=== PATIENT | male | born 1955 | race Caucasian/White ===

== ENCOUNTER 2017-01-13 11:05 | Emergency (ER) | payer OTHER ==
--- NOTE | 2017-01-13 12:56 | ED ---
Eye Problem HPI - General Chief complaint: Eye Problems Stated complaint: RT EYE PROBLEM Time Seen by Provider: 01/13/17 12:01 Source: patient Mode of arrival: ambulatory Limitations: no limitations - History of Present Illness Initial comments: Patient is a 61-year-old man who presents to the ED for evaluation of 2 days of vision changes. The patient has a distant history of right cataract surgery done at the [facility] in [place]. Patient reports that he followed up postoperatively but has not followed up since that time. The patient reports that 2 days ago he began experiencing a blurry spot in the vision of his right eye. The patient describes this as feeling as though it there is a large drop of dirty water inside his visual field. Patient states when he moves his eye he feels as though this drop of blurry water moves around floats around his eye. Patient denies any pain in the eye, any redness, any tearing of the eye, he denies any recent trauma to the head or the eye. Patient denies any headaches, fevers chills nausea or vomiting. Patient reports he came to the ER today because he is concerned that something may be wrong with the lens that was placed in his eye when he had cataract surgery. Patient currently does not have a local driver's license or means of transportation therefore could not take himself to the ophthalmology office in [place] that he is followed with previously. chief complaint: vision change Onset/Timin (days) Onset Description: sudden Location: right eye Place: home Eye Symptoms: blurry vision Severity: mild Consistency: constant Associated Symptoms: none Treatments Prior to Arrival: none - Related Data Home Medications Medication Instructions Recorded Confirmed No Known Home Medications [No 01/13/17 01/13/17 Known Home Medications] Allergies Allergy/AdvReac Type Severity Reaction Status Date / Time No Known Allergies Allergy Verified 01/13/17 11:32 Review of Systems ROS Statement: Those systems with pertinent positive or pertinent negative responses have been documented in the HPI. ROS Other: All systems not noted in ROS Statement are negative. Constitutional: Denies: fever, chills Eyes: Reports: vision change. Denies: eye pain, eye discharge ENT: Denies: ear pain, throat pain Respiratory: Denies: cough Cardiovascular: Denies: chest pain Endocrine: Denies: fatigue Gastrointestinal: Denies: abdominal pain, nausea, vomiting Skin: Denies: rash, lesions Neurological: Denies: headache, weakness, numbness, paresthesias, confusion, abnormal gait, vertigo Psychiatric: Denies: anxiety, depression Hematological/Lymphatic: Denies: easy bleeding, easy bruising Past Medical History Past Medical History: No Reported History Additional Past Medical History / Comment(s): cataract right eye History of Any Multi-Drug Resistant Organisms: None Reported Past Surgical History: No Surgical Hx Reported Additional Past Surgical History / Comment(s): Cataract surgery right eye Past Psychological History: No Psychological Hx Reported Smoking Status: Current every day smoker Past Alcohol Use History: None Reported Past Drug Use History: None Reported General Exam Limitations: no limitations General appearance: alert, in no apparent distress Head exam: Present: atraumatic, normocephalic, normal inspection Eye exam: Present: normal appearance, PERRL, EOMI. Absent: scleral icterus, conjunctival injection, nystagmus, periorbital swelling, periorbital tenderness Pupils: Present: normal accommodation. Absent: irregular, unequal, miosis, mydriatic Expanded Eyelids: Normal Inspection: Bilateral Pupils: Regular, Round: Bilateral Sclera/Conjunctival: Normal Inspection: Bilateral Anterior chamber: Normal Inspection: Bilateral Posterior chamber: Retinal Detachment: Right (Concern for posterior vitreous detachment) Visual acuity (R) = 20/: 40 Visual acuity (L) = 20/: 40 With correction: No ENT exam: Present: normal exam Neck exam: Present: normal inspection Respiratory exam: Present: normal lung sounds bilaterally. Absent: respiratory distress, wheezes, rales, rhonchi, stridor Cardiovascular Exam: Present: regular rate, normal rhythm, normal heart sounds. Absent: systolic murmur, diastolic murmur, rubs, gallop, clicks GI/Abdominal exam: Present: soft, normal bowel sounds. Absent: distended, tenderness, guarding, rebound, rigid Rectal exam: Present: deferred Extremities exam: Present: normal inspection, full ROM, normal capillary refill. Absent: tenderness, pedal edema, joint swelling, calf tenderness Back exam: Present: normal inspection Neurological exam: Present: alert, oriented X3, CN II-XII intact, normal gait Course Vital Signs 01/13/17 11:24 Temperature 97.8 F Pulse Rate 88 Respiratory 17 Rate Blood Pressure 143/84 O2 Sat by Pulse 97 Oximetry - Reevaluation(s) Reevaluation #1: Ocular OR sound concerning for per posterior vitreous detachment 01/13/17 12:44 Reevaluation #2: Patient care discussed with Dr. Dunn, agrees with assessment of likely posterior vitreous detachment, less likely retinal detachment given the patient' s good visual acuity. He would like to see the patient office at 8 AM tomorrow. Discharge and follow-up information was provided in writing for the patient. 01/13/17 13:00 Medical Decision Making - Medical Decision Making Patient was seen and evaluated, history is obtained from the patient vital signs were reviewed History concerning for posterior vitreous detachment versus retinal detachment Physical exam with abnormal red reflex of the right eye Bedside ocular ultrasound again concerning for posterior vitreous detachment, optic nerve was seen on bedside ultrasound and appeared to be normal shape History and Physical exam were discussed with ophthalmology on-call who agree that this is likely a posterior vitreous detachment, they recommended the patient follow up in their office tomorrow morning at 8 AM. All findings and ophthalmology recommendations were discussed with the patient. All questions were pertaining to care were answered to the best of my ability. Patient was advised that he is safe for discharge home at this time however he should return to the ED for any acute changes in his vision or development of any eye pain. Patient expressed understanding and agreement with the plan. Disposition Clinical Impression: Vitreous detachment of right eye, Vision changes Disposition: HOME SELF-CARE Instructions: Visual Floaters (ED) Referrals: None,Stated [Primary Care Provider] - 1-2 days Hubert Dunn MD [STAFF PHYSICIAN] - 01/14/17 8:00 am
[2017-01-13 13:25] VITALS: BP 147/89; PULSE 76; RESP 18; TEMP 97.6
== END 2017-01-13 13:22 | disposition home or self-care (01) ==
LOC: EC 11:05
DX: H43.811 Vitreous degeneration, right eye (principal); F17.200 Nicotine dependence, unspecified, uncomplicated; Z98.41 Cataract extraction status, right eye
CPT/HCPCS: 99283

== ENCOUNTER 2019-08-30 14:19 | Emergency (ER) | payer OTHER ==
[2019-08-30 14:30] VITALS: BP 137/83; PULSE 87; RESP 18; TEMP 98
[2019-08-30] MEDS ORDERED: LIDOCAINE 1% INJ 10MG/ML (20 ML MDV) SQ ONE (14:35)
--- NOTE | 2019-08-30 14:54 | ED ---
General Adult HPI - General Chief complaint: Skin/Abscess/Foreign Body Stated complaint: abscess/lump on chest Time Seen by Provider: 08/30/19 14:35 Source: patient, RN notes reviewed Mode of arrival: ambulatory Limitations: no limitations - History of Present Illness Initial comments: 63-year-old male with a past medical history of GERD presents to the emergency department for abscess of the left chest. Patient states he had possibly an ingrown hair here a couple weeks ago and that has since gotten larger and more red. States it is painful. Patient denies any fevers. Denies chest pain. Denies immunocompromised state. Patient has no other complaints at this time including shortness of breath, chest pain, abdominal pain, nausea or vomiting, headache, or visual changes. - Related Data Previous Rx's Medication Instructions Recorded Omeprazole [PriLOSEC] 20 mg PO AC-BRKFST #30 cap 07/01/17 Sucralfate [Carafate] 1 gm PO BID #60 tablet 07/01/17 traMADol HCL [Ultram] 50 mg PO Q6HR PRN #20 tab 07/01/17 Cephalexin [Keflex] 500 mg PO Q6HR 10 Days #40 cap 08/30/19 Sulfamethox-Tmp 800-160Mg [Bactrim 1 tab PO Q12HR #20 tab 08/30/19 DS 800-160 mg] Allergies Allergy/AdvReac Type Severity Reaction Status Date / Time No Known Allergies Allergy Verified 08/30/19 14:31 Review of Systems ROS Statement: Those systems with pertinent positive or pertinent negative responses have been documented in the HPI. ROS Other: All systems not noted in ROS Statement are negative. Past Medical History Past Medical History: GERD/Reflux Additional Past Medical History / Comment(s): cataract right eye History of Any Multi-Drug Resistant Organisms: None Reported Past Surgical History: No Surgical Hx Reported Additional Past Surgical History / Comment(s): Cataract and retinal surgery right eye Past Anesthesia/Blood Transfusion Reactions: No Reported Reaction Past Psychological History: No Psychological Hx Reported Smoking Status: Current every day smoker Past Alcohol Use History: None Reported Past Drug Use History: None Reported - Past Family History Sister(s) Additional Family Medical History / Comment(s): gerd/reflux Mother Additional Family Medical History / Comment(s): emphysema; General Exam Limitations: no limitations General appearance: alert, in no apparent distress Head exam: Present: atraumatic, normocephalic, normal inspection Eye exam: Present: normal appearance, PERRL, EOMI. Absent: scleral icterus, conjunctival injection, periorbital swelling ENT exam: Present: normal exam, mucous membranes moist Neck exam: Present: normal inspection, full ROM. Absent: tenderness, meningismus, lymphadenopathy Respiratory exam: Present: normal lung sounds bilaterally. Absent: respiratory distress, wheezes, rales, rhonchi, stridor Cardiovascular Exam: Present: regular rate, normal rhythm, normal heart sounds. Absent: systolic murmur, diastolic murmur, rubs, gallop, clicks GI/Abdominal exam: Present: soft, normal bowel sounds. Absent: distended, tenderness, guarding, rebound, rigid Skin exam: Present: other (Patient has a 2 cm x 2 cm abscess noted over the left upper anterior chest. There is mild surrounding erythema about 5 cm x 5 cm in t his area. 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 Afebrile. Patient has a 2 cm abscess with about 5 cm of associated cellulitis on the left upper chest. Incision and drainage was performed in purulent material was expelled. Patient was started on Keflex and Bactrim given associated cellulitis. I discussed return parameters with patient including worsening cellulitis. Discussed following up with dermatology and primary care. He will return for any worsening symptoms. Disposition Clinical Impression: Abscess Disposition: HOME SELF-CARE Condition: Good Instructions (If sedation given, give patient instructions): Abscess (ED), Warm Compress or Soak (ED) Additional Instructions: Please apply warm compresses at least 3 times daily for 20 minutes. Take antibiotics as directed. Give antibiotics about 24 hours to work. If redness is spreading or youre having worsening symptoms after 24 hours return to the emergency department. Prescriptions: Sulfamethox-Tmp 800-160Mg [Bactrim DS 800-160 mg] 1 tab PO Q12HR #20 tab Cephalexin [Keflex] 500 mg PO Q6HR 10 Days #40 cap Is patient prescribed a controlled substance at d/c from ED?: No Referrals: Nonstaff,Physician [Primary Care Provider] - 1-2 days Jose Alfredo Padilla MD [STAFF PHYSICIAN] - 1-2 days Time of Disposition: 14:55
== END 2019-08-30 15:00 | disposition home or self-care (01) ==
LOC: EC 14:19
DX: L02.213 Cutaneous abscess of chest wall (principal); L03.313 Cellulitis of chest wall; F17.200 Nicotine dependence, unspecified, uncomplicated
CPT/HCPCS: 99283; 10060; J2001